=== PATIENT | female | born 2000 | race Caucasian/White ===

== ENCOUNTER 2019-03-07 09:52 | Inpatient (IN) ==
[2019-03-08] MEDS ORDERED: ONDANSETRON 4 MG TAB.RAPDIS PO PRN (06:20)
[2019-03-08] MEDS ORDERED: RINGER'S SOLUTION,LACTATED 1,000 ML IV ONE (06:20)
[2019-03-08] MEDS ORDERED: BUTORPHANOL TARTRATE 2 MG/ML VIAL IV PRN ×2 (06:20)
[2019-03-08] MEDS ORDERED: LIDOCAINE HCL 50 ML VIAL PERI PRN (06:20)
[2019-03-08] MEDS ORDERED: OXYTOCIN/DEXTROSE 5%-WATER 30 UNITS/500 ML BAG IV ONE ×2 (06:20→22:28)
[2019-03-08] MEDS: RINGER'S SOLUTION,LACTATED 1,000 ML IV PRN ×3 (06:48→21:00)
[2019-03-08 07:01] LABS: Cocaine Ur Negative (NEGATIVE); Urine Barbiturate Negative (NEGATIVE); Urine Benzodiazepines Negative (NEGATIVE); Urine Opiates Negative (NEGATIVE); Urine PCP Negative (NEGATIVE); Urine THC Negative (NEGATIVE)
[2019-03-08] MEDS ORDERED: NALOXONE HCL 1 MG/1 ML SYRG IV PRN (08:52)
[2019-03-08] MEDS ORDERED: ONDANSETRON HCL/PF 2 MG/ML VIAL IV PRN (08:52)
[2019-03-08] MEDS ORDERED: BUPIVACAINE HCL/0.9 % NACL/PF 250 ML EP PRN (08:52)
--- NOTE | 2019-03-08 08:58 | ANES ---
Anesthesia Pre Procedure Eval Vitals/Labs: Last Vital Signs Temp 36.6 C 03/08/19 06:35 Pulse 100 03/08/19 06:35 Resp 16 03/08/19 06:35 BP 125/74 03/08/19 06:35 Pulse Ox 98 03/08/19 06:35 HOME MEDICATIONS cholecalciferol (vitamin D3) 1,000 unit capsule 1,000 unit PO DAILY 10/06/18 [Last Taken 03/08/19] Vits96/Iron Fum/Folic [ S] 1 tab PO DAILY 03/08/19 [Last Taken 03/08/19] Allergies/Adverse Reactions: Allergies Allergy/AdvReac Type Severity Reaction Status Date / Time No Known Allergies Allergy Verified 03/08/19 06:30 - Planned Procedure Planned Procedure: ELECTIVE INDUCTION Medication List Reviewed:: Yes Allergies Verified: Yes Medical History (Last Reviewed 03/08/19 @ 08:57 by Yusuf Mercer CRNA) Back pain Bipolar 1 disorder Depression Schizophrenia Seizure disorder only 2 episodes per patient-never been on meds Surgical History (Last Reviewed 03/08/19 @ 08:57 by Yusuf Mercer CRNA) No pertinent past surgical history Family History (Last Reviewed 03/08/19 @ 08:40 by Jeannette Fischer RN) Father Myocardial infarction, Onset Age: 30 x3 Mother History of knee replacement Depression Grandfather Cancer Bladder Grandmother COPD (chronic obstructive pulmonary disease) Sister Apraxia Aunt Epilepsy Grandmother Epilepsy - Anesthesia Assessment and Plan ASA Class: PS, II Anesthesia Type Plan: Epidural
[2019-03-08] MEDS ORDERED: BUPIVACAINE HCL/PF 30 ML VIAL EP SCH (09:00)
--- NOTE | 2019-03-08 09:04 | HP ---
Chief Complaint - Chief Complaint Date of Service: 03/08/19 Time of Service: 08:57 Chief Complaint: Labor induction History of Present Illness: 18 year old at 39w 2d who presents to labor and delivery for an elective IOL. She denies vaginal bleeding or loss of fluid. She reports regular ctx on pitocin. Fetus is active. Medical History (Last Reviewed 03/08/19 @ 08:59 by Lisa Chen MD) Back pain Bipolar 1 disorder Depression Schizophrenia Seizure disorder only 2 episodes per patient-never been on meds Surgical History: Surgical History (Last Reviewed 03/08/19 @ 08:59 by Lisa Chen MD) No pertinent past surgical history Family History: Family History (Last Reviewed 03/08/19 @ 08:59 by Lisa Chen MD) Father Myocardial infarction, Onset Age: 30 x3 Mother History of knee replacement Depression Grandfather Cancer Bladder Grandmother COPD (chronic obstructive pulmonary disease) Sister Apraxia Aunt Epilepsy Grandmother Epilepsy Social History: (Last Reviewed 03/08/19 @ 08:59 by Lisa Chen MD) Social History: adopted: No Marital status: Single household members: significant other current occupational status: unemployed current occupational exposures/hazards: No Highest education level completed: high school graduate Service: No Tobacco: Smoking Status: Current every day smoker tobacco type: cigarettes Smoking cigarettes per day: 3 Years smoked: 4 Smoking pack-years: 0.60 Alcohol: alcohol intake: former details: stopped with +UPT Substance Use: substance use type: marijuana, methamphetamine, other details: meth last used 07/2017, marijuana last used approx 2 weeks ago Dietary Habits: caffeine: Yes caffeine comment: 3 per week Type: coffee Pets: pets and animals: cat(s), dog(s) Review Of Systems (GEN) - Review of Systems Generalized/Overall Review: Present: No Symptoms Reported Misc: All systems neg except as marked Immunizations: IMMUNIZATION HX Immunizations Up to Date Yes Allergies/Adverse Reactions: Allergies Allergy/AdvReac Type Severity Reaction Status Date / Time No Known Allergies Allergy Verified 03/08/19 06:30 Home Medications: HOME MEDICATIONS cholecalciferol (vitamin D3) 1,000 unit capsule 1,000 unit PO DAILY 10/06/18 [Last Taken 03/08/19] Vits96/Iron Fum/Folic [ S] 1 tab PO DAILY 03/08/19 [Last Taken 03/08/19] Exam - Exam Vital Signs: Vital Signs - Last Taken Temp 36.6 C 03/08/19 06:35 Pulse 100 03/08/19 06:35 Resp 16 03/08/19 06:35 BP 125/74 03/08/19 06:35 Pulse Ox 98 03/08/19 06:35 Constitutional: Present: Alert, Oriented x3, Cooperative, No distress ENT Exam: Present: hearing grossly normal Back Exam: Present: normal inspection, no CVA tenderness Breasts: Present: Exam deferred Respiratory: Present: lungs clear, normal breath sounds Cardiovascular/Chest: Present: regular rate, rhythm Abdomen: Present: soft, nontender, nondistended /Rectal: Present: Other - 3.5/70/-1 Extremity: Present: non-tender, no calf tenderness Skin Exam: Present: normal color, warm/dry, no cyanosis Appearance: Present: appropriate appearance Eye contact: Present: cooperative Thoughts: Present: normal thought pattern Diagnostic Studies: Laboratory Results Urine Opiates Screen Negative (NEGATIVE) 03/08/19 06:35 Barbiturate Screen Negative (NEGATIVE) 03/08/19 06:35 Ur Phencyclidine Scrn Negative (NEGATIVE) 03/08/19 06:35 Urine Amphetamine Negative (NEGATIVE) 03/08/19 06:35 U Benzodiazepines Scrn Negative (NEGATIVE) 03/08/19 06:35 Urine Cocaine Screen Negative (NEGATIVE) 03/08/19 06:35 Urine Marijuana (THC) Negative (NEGATIVE) 03/08/19 06:35 Blood Type O Positive 03/08/19 06:35 Antibody Screen Negative 03/08/19 06:35 Assessment/Plan - Narrative Narrative: 18 year old at 39w 2d 1. Elective IOL: Patient on pitocin and AROM done for augmentation 2. GBS negative: prophylaxis not indicated
--- NOTE | 2019-03-08 10:52 | ANES ---
Anesthesia Procedure Note Procedure Note: ANESTHESIA PROCEDURE NOTE Date of Procedure: 03/08/2018. Time of procedure: 1040. Performed by: Yusuf Mercer CRNA Diesel Engine Engineer: None. Preprocedure diagnosis: Active labor. Post procedure diagnosis: Same. Procedure: Insertion of labor epidural. Indications: The patient is a 18-year-old female in active labor requesting labor epidural for pain management. Findings: See below. Details of the procedure: The patient was placed in a sitting position. DuraPrep as well as Betadine swabs X3 was applied to the patient's back. Patient was then draped in a sterile fashion. Lidocaine 1% was infiltrated to the skin and subcutaneous tissues at the level of the L3-4 interspace. The epidural space was identified using a 18-gauge Tuohy needle with [id number] technique. Epidural catheter was inserted to a depth of 8 centimeters at skin. Negative test dose was elicited using 3 mL of 1.5% preservative-free lidocaine plus epinephrine 1 200,000. The epidural catheter was then taped and secured in place. A loading dose of 8 mL of 0.25% preservative-free bupivacaine was administered to the epidural catheter after negative aspiration for blood and CSF. EBL: Minimal. Fluids: N/A. Specimen: N/A. Post procedure condition: The patient tolerated the procedure well. No complications were noted. Thank you for this consultation. Yusuf Mercer CRNA
--- NOTE | 2019-03-08 10:52 | ANES ---
Post Anesthesia Assessment - Vital Signs Vitals: Last Vital Signs Temp 36.8 C 03/08/19 10:50 Pulse 107 H 03/08/19 10:50 Resp 20 03/08/19 10:50 BP 151/87 H 03/08/19 10:50 Pulse Ox 98 03/08/19 10:50 Airway Patency: Normal - Mental Status Level Of Consciousness: Awake - N/V Assessment Nausea/Vomiting Presence: None Dehydration:: No
--- NOTE | 2019-03-08 22:27 | OR ---
Operative Report - Dictated Report Narrative: Date of delivery: 03/08/2019 Time of delivery: 2212 Gender: male weight: 2971 grams APGARS: 9 Procedure: Description of the procedure: The patient is a 18 year old at 39w 2d who presented to labor and delivery for an elective induction of labor. She received pitocin and was augmented with AROM. She progressed to complete dilation. She delivered a viable male infant in direct OA presentation. The shoulders delivered without any difficulty followed by the rest of the . Cord clamping was delayed for 60 seconds. The cord was clamped and cut. The placenta was delivered by expression and appeared intact. There were no lacerations. Terminal meconium was noted. EBL: 200 mL Complications: none Specimen: placenta to pathology History for MU Definition: * The number of deliveries resulting in a live the patient experienced prior to current hospitalization * The previous delivery of live twins or any live multiple gestation is considered one live event. *If primagravida or nulliparous is documented select zero for the number of previous live births. Live Events: 0
[2019-03-08] MEDS ORDERED: GLYCERIN/WITCH HAZEL LEAF 40 APPL BOX TP PRN (22:28)
[2019-03-08] MEDS ORDERED: BENZOCAINE/MENTHOL 81 SPRAY CAN TP PRN (22:28)
[2019-03-08] MEDS ORDERED: diphenhydrAMINE HCL 25 MG CAPSULE PO PRN (22:28)
[2019-03-08] MEDS ORDERED: HYDROCORTISONE 30 APPL TUBE TP PRN (22:28)
[2019-03-08] MEDS ORDERED: HYDROcodone/ACETAMINOPHEN 1 EACH TABLET PO PRN (22:28)
[2019-03-08] MEDS ORDERED: IBUPROFEN 800 MG TABLET PO PRN (22:28)
[2019-03-08] MEDS ORDERED: BISACODYL 10 MG SUPP.RECT RC PRN (22:28)
[2019-03-08] MEDS ORDERED: SENNOSIDES 8.6 MG TABLET PO PRN (22:28)
[2019-03-09] MEDS: HYDROcodone/ACETAMINOPHEN 1 EACH TABLET PO PRN ×2 (02:02→16:20)
--- NOTE | 2019-03-09 08:59 | PN ---
Subjective - Date and Time Seen Date: 03/09/19 Time: 08:57 Subjective Narrative: Patient without complaints Objective Objective Narrative: See vital signs - Review of Systems Generalized/Overall Review: Reports: No Symptoms Reported Misc: All systems neg except as marked - Vitals Vitals: Last Vital Signs Temp 36.4 C 03/09/19 03:25 Pulse 100 03/09/19 03:25 Resp 18 03/09/19 03:25 BP 130/61 03/09/19 03:25 Pulse Ox 98 03/09/19 03:25 - Exam Constitutional: Present: Alert, Oriented x3, Cooperative, No distress ENT Exam: Present: hearing grossly normal Abdomen: Present: soft, nontender, nondistended - fundus is firm Extremity: Present: non-tender, no calf tenderness Skin Exam: Present: normal color, warm/dry, no cyanosis Appearance: Present: appropriate appearance Eye contact: Present: cooperative Thoughts: Present: normal thought pattern Cauti Physician Documentation - Urinary Catheter Management Urethral (Navarrete) Urethral Indwelling: No Date of Insertion: 03/08/19 Time of Insertion: 11:11 Date of Removal: 03/08/19 Time of Removal: 21:40 Assessment/Plan Plan Narrative: PPD 1 s/p Doing well Discharge tomorrow
[2019-03-09] MEDS: DOCUSATE SODIUM 100 MG CAPSULE PO SCH (13:35)
[2019-03-10] MEDS: DOCUSATE SODIUM 100 MG CAPSULE PO SCH (04:47)
[2019-03-10 09:34] VITALS: BP 116/63
--- NOTE | 2019-03-10 09:46 | PN ---
Subjective - Date and Time Seen Date: 03/10/19 Time: 09:45 Subjective Narrative: Patient without complaints Objective Objective Narrative: See vital signs - Review of Systems Generalized/Overall Review: Reports: No Symptoms Reported Misc: All systems neg except as marked - Vitals Vitals: Last Vital Signs Temp 36.6 C 03/10/19 09:28 Pulse 94 03/10/19 09:28 Resp 18 03/10/19 09:28 BP 116/63 03/10/19 09:28 Pulse Ox 98 03/10/19 09:28 - Exam Constitutional: Present: Alert, Oriented x3, Cooperative, No distress Extremity: Present: non-tender, no calf tenderness Skin Exam: Present: normal color, warm/dry, no cyanosis Appearance: Present: appropriate appearance Eye contact: Present: cooperative Thoughts: Present: normal thought pattern Cauti Physician Documentation - Urinary Catheter Management Urethral (Navarrete) Urethral Indwelling: No Date of Insertion: 03/08/19 Time of Insertion: 11:11 Date of Removal: 03/08/19 Time of Removal: 21:40 Assessment/Plan Plan Narrative: PPD 2 s/p Doing well Discharge home
== END 2019-03-10 15:30 | disposition home or self-care (01) | DRG 807 ==
LOC: OB 09:52 → MS 03-09 11:29
PROVIDERS: ADMIT Obstetrics & Gynecology; ATTEND Obstetrics & Gynecology
CPT/HCPCS: 59025; 80307; 86850; 88307

== ENCOUNTER 2020-04-18 00:08 | Inpatient (IN) ==
[2020-04-18] MEDS ORDERED: ONDANSETRON 4 MG TAB.RAPDIS PO PRN (00:09)
[2020-04-18] MEDS ORDERED: RINGER'S SOLUTION,LACTATED 1,000 ML IV ONE (00:09)
[2020-04-18] MEDS ORDERED: OXYTOCIN/0.9 % SODIUM CHLORIDE 30 UNITS/500 ML BAG IV ONE ×2 (00:09→09:55)
[2020-04-18 02:40] LABS: Cocaine Ur Negative (NEGATIVE); Urine Barbiturate Negative (NEGATIVE); Urine Benzodiazepines Negative (NEGATIVE); Urine Opiates Negative (NEGATIVE); Urine PCP Negative (NEGATIVE); Urine THC Negative (NEGATIVE)
[2020-04-18] MEDS ORDERED: ONDANSETRON HCL/PF 2 MG/ML VIAL IV PRN (04:11)
[2020-04-18] MEDS ORDERED: NALOXONE HCL 1 MG/1 ML SYRG IV PRN (04:11)
[2020-04-18] MEDS ORDERED: BUPIVACAINE HCL/0.9 % NACL/PF 250 ML EP PRN (04:11)
[2020-04-18] MEDS ORDERED: BUPIVACAINE HCL/PF 30 ML VIAL EP SCH (04:15)
--- NOTE | 2020-04-18 04:36 | ANES ---
Anesthesia Pre Procedure Eval HOME MEDICATIONS cholecalciferol (vitamin D3) 25 mcg (1,000 unit) capsule 1,000 unit PO DAILY 10/06/18 [Last Taken 03/08/19] Vits96/Iron Fum/Folic [ S] 1 tab PO DAILY 03/08/19 [Last Taken 03/08/19] magnesium 250 mg tablet 500 mg PO DAILY tab 11/13/19 [Last Taken Unknown] calcium carbonate 500 mg calcium (1,250 mg) chewable tablet 500 mg PO DAILY 04/02/20 [Last Taken Unknown] Allergies/Adverse Reactions: Allergies Allergy/AdvReac Type Severity Reaction Status Date / Time No Known Allergies Allergy Verified 04/18/20 00:10 - Planned Procedure Planned Procedure: elective induction Medication List Reviewed:: Yes Allergies Verified: Yes Medical History (Last Reviewed 04/18/20 @ 04:35 by Yusuf Mercer CRNA) Short interval between pregnancies affecting , antepartum (Acute) Back pain Bipolar 1 disorder Depression Schizophrenia Seizure disorder only 2 episodes per patient-never been on meds Surgical History (Last Reviewed 04/18/20 @ 04:35 by Yusuf Mercer CRNA) No pertinent past surgical history Family History (Last Reviewed 04/16/20 @ 10:41 by Jo Andrade RN) Father Myocardial infarction, Onset Age: 30 x3 Mother History of knee replacement Depression Grandfather Cancer Bladder Grandmother COPD (chronic obstructive pulmonary disease) Sister Apraxia Aunt Epilepsy Grandmother Epilepsy - Anesthesia Assessment and Plan ASA Class: PS, II Anesthesia Type Plan: Epidural
--- NOTE | 2020-04-18 04:53 | ANES ---
Anesthesia Procedure Note Procedure Note: ANESTHESIA PROCEDURE NOTE Date of Procedure: 04/18/2020. Time of procedure: 434. Performed by: Yusuf Mercer CRNA Manager Law: None. Preprocedure diagnosis: Active labor. Post procedure diagnosis: Same. Procedure: Insertion of labor epidural. Indications: The patient is a 19-year-old female in active labor requesting labor epidural for pain management. Findings: See below. Details of the procedure: The patient was placed in a sitting position. DuraPrep as well as Betadine swabs X3 was applied to the patient's back. Patient was then draped in a sterile fashion. Lidocaine 1% was infiltrated to the skin and subcutaneous tissues at the level of the L3-4 interspace. The epidural space was identified using a 18-gauge Tuohy needle with [id number] technique. Epidural catheter was inserted to a depth of 9 centimeters at skin. Negative test dose was elicited using 3 mL of 1.5% preservative-free lidocaine plus epinephrine 1 200,000. The epidural catheter was then taped and secured in place. A loading dose of 8 mL of 0.25% preservative-free bupivacaine was administered to the epidural catheter after negative aspiration for blood and CSF. EBL: Minimal. Fluids: N/A. Specimen: N/A. Post procedure condition: The patient tolerated the procedure well. No complications were noted. Thank you for this consultation. Yusuf Mercer CRNA
--- NOTE | 2020-04-18 04:54 | ANES ---
Post Anesthesia Assessment - Vital Signs Airway Patency: Normal - Mental Status Level Of Consciousness: Awake - N/V Assessment Nausea/Vomiting Presence: None Dehydration:: No
--- NOTE | 2020-04-18 08:58 | HP ---
Chief Complaint - Chief Complaint Date of Service: 04/18/20 Time of Service: 08:35 Chief Complaint: induction of labor History of Present Illness: 19 yo at 39w1d admitted for induction of labor. This complicated by anemia, bipolar d/o, depression, schizophrenia, short interval between pregnancies, back pain, smoker, and THC use. Rh positive Rubella nonimmune GBS negative Medical History (Last Reviewed 04/18/20 @ 08:40 by Cullen Dixon DO) Short interval between pregnancies affecting , antepartum (Acute) Back pain Bipolar 1 disorder Depression Schizophrenia Seizure disorder only 2 episodes per patient-never been on meds Surgical History: Surgical History (Last Reviewed 04/18/20 @ 08:40 by Cullen Dixon DO) No pertinent past surgical history Family History: Family History (Last Reviewed 04/18/20 @ 08:40 by Cullen Dixon DO) Father Myocardial infarction, Onset Age: 30 x3 Mother History of knee replacement Depression Grandfather Cancer Bladder Grandmother COPD (chronic obstructive pulmonary disease) Sister Apraxia Aunt Epilepsy Grandmother Epilepsy Social History: (Last Reviewed 04/18/20 @ 08:40 by Cullen Dixon DO) Social History: adopted: No Marital status: household members: spouse current occupational status: employed current occupation: [employer] current occupational exposures/hazards: No Highest level of school completed/degree received: high school graduate Service: No Tobacco: Smoking Status: Current every day smoker tobacco type: cigarettes Smoking cigarettes per day: 10.0 Smoking packs per day: 0.5 Alcohol: alcohol intake: former details: stopped with +UPT Substance Use: substance use type: marijuana details: meth last used 07/2017, marijuana last used approx 3-4 weeks ago Dietary Habits: caffeine: Yes caffeine comment: 3 per day Type: coffee daily servings of milk/calcium: 2-4 Pets: pets and animals: cat(s) Exercise: frequency: does not exercise Review Of Systems (GEN) - Review of Systems Generalized/Overall Review: Present: No Symptoms Reported EENTM: Present: No Symptoms Reported Respiratory: Present: No Symptoms Reported Cardiac: Present: No Symptoms Reported Abdominal: Present: No Symptoms Reported Genitourinary: Present: No Symptoms Reported Musculoskeletal: Present: No Symptoms Reported Neurological: Present: No Symptoms Reported Skin: Present: No Symptoms Reported Endocrine: Present: No Symptoms Reported Immunizations: IMMUNIZATION HX Immunizations Up to Date Yes Allergies/Adverse Reactions: Allergies Allergy/AdvReac Type Severity Reaction Status Date / Time No Known Allergies Allergy Verified 04/18/20 00:10 Home Medications: HOME MEDICATIONS cholecalciferol (vitamin D3) 25 mcg (1,000 unit) capsule 1,000 unit PO DAILY 10/06/18 [Last Taken 03/08/19] Vits96/Iron Fum/Folic [ S] 1 tab PO DAILY 03/08/19 [Last Taken 03/08/19] magnesium 250 mg tablet 500 mg PO DAILY tab 11/13/19 [Last Taken Unknown] calcium carbonate 500 mg calcium (1,250 mg) chewable tablet 500 mg PO DAILY 04/02/20 [Last Taken Unknown] Exam - Exam Vital Signs: T 36.7C, P 90, BP 137/70, R 16, O2 98% Constitutional: Present: Alert, Oriented x3, Cooperative ENT Exam: Present: hearing grossly normal Neck: Present: non-tender, supple. Absent: thyromegaly Breasts: Present: Exam deferred Respiratory: Present: lungs clear, no respiratory distress Cardiovascular/Chest: Present: regular rate, rhythm, no edema Abdomen: Present: soft, nontender, no rebound tenderness, other - Gravid /Rectal: Present: Other - Cervix - 3/50/-3 Extremity: Present: no pedal edema, no calf tenderness Skin Exam: Present: normal color, warm/dry, no cyanosis Lymphatic: Present: no adenopathy Neurologic: Present: alert, normal mood/affect, oriented x 3 Appearance: Present: appropriate appearance, appropriate insight Eye contact: Present: cooperative, good eye contact Thoughts: Present: normal thought pattern, normal mood /affect Diagnostic Studies: Laboratory Results Urine Opiates Screen Negative (NEGATIVE) 04/18/20 02:00 Barbiturate Screen Negative (NEGATIVE) 04/18/20 02:00 Ur Phencyclidine Scrn Negative (NEGATIVE) 04/18/20 02:00 Urine Amphetamine Negative (NEGATIVE) 04/18/20 02:00 U Benzodiazepines Scrn Negative (NEGATIVE) 04/18/20 02:00 Urine Cocaine Screen Negative (NEGATIVE) 04/18/20 02:00 Urine Marijuana (THC) Negative (NEGATIVE) 04/18/20 02:00 Assessment/Plan - Assessment/Plan (1) Elective induction of labor planned Assessment: Admit to L&D for pitocin induction of labor. Epidural PRN. UDS and cord blood segment for drug screen. Problem: Acute (2) Depression Problem: Chronic Qualifiers: Depression Type: unspecified Qualified Code(s): F32.9 - Major depressive disorder, single episode, unspecified (3) Bipolar disorder Problem: Chronic Qualifiers: Active/Remission status: in remission of unspecified degree Qualified Code(s): F31.70 - Bipolar disorder, currently in remission, most recent episode unspecified (4) Schizophrenia Problem: Chronic Qualifiers: Schizophrenia type: unspecified Qualified Code(s): F20.9 - Schizophrenia, unspecified (5) Short interval between pregnancies affecting , antepartum Problem: Acute (6) Tobacco abuse Problem: Chronic (7) Not immune to rubella Problem: Chronic (8) Tetrahydrocannabinol (THC) use disorder, mild, abuse Problem: Chronic
--- NOTE | 2020-04-18 09:00 | PN ---
Progess Note - Interim Date: 04/18/20 Time: 08:58 Narrative: 04/18/20 08:58 Patient comfortable with epidural Vital signs stable. FHT: 130 baseline, reassuring contractions q 1-3 min Cervix: 8/90/-1, spontaneous SROM at 0350 Impression: Intrauterine at 39-1/7 weeks elective induction of labor Plan: Anticipate normal spontaneous vaginal delivery soon
[2020-04-18] MEDS ORDERED: SENNOSIDES 8.6 MG TABLET PO PRN (09:55)
[2020-04-18] MEDS ORDERED: HYDROCORTISONE 30 APPL TUBE TP PRN (09:55)
[2020-04-18] MEDS ORDERED: IBUPROFEN 800 MG TABLET PO PRN ×2 (09:55)
[2020-04-18] MEDS ORDERED: BISACODYL 10 MG SUPP.RECT RC PRN (09:55)
[2020-04-18] MEDS ORDERED: GLYCERIN/WITCH HAZEL LEAF 40 APPL BOX TP PRN (09:55)
[2020-04-18] MEDS ORDERED: BENZOCAINE/MENTHOL 81 SPRAY CAN TP PRN (09:55)
--- NOTE | 2020-04-18 10:02 | OR ---
Operative Report - Dictated Report Narrative: Spontaneous vaginal delivery of vigorously crying viable male at 0938 on 04/18/2020 with Apgars 9 and 9, weighing 3190 grams and GEM position with foot cord x1. Cord clamping delayed approximately 1.5 minutes Placenta delivered complete, intact, with three vessel cord Estimated blood loss: Less than 50 ml Anesthesia: Epidural Lacerations: None History for MU History for Definition: * The number of deliveries resulting in a live the patient experienced prior to current hospitalization * The previous delivery of live twins or any live multiple gestation is considered one live event. *If primagravida or nulliparous is documented select zero for the number of previous live births. Live Events: Live Events: 1
[2020-04-18] MEDS ORDERED: MISOPROSTOL 200 MCG TABLET PO ONE (12:56)
[2020-04-18] MEDS: DOCUSATE SODIUM 100 MG CAPSULE PO SCH (20:13)
--- NOTE | 2020-04-19 08:25 | PN ---
Subjective - Date and Time Seen Date: 04/19/20 Time: 08:23 Objective - Vitals Vitals: Last Vital Signs Temp 36.7 C 04/19/20 07:27 Pulse 82 04/19/20 07:27 Resp 16 04/19/20 07:27 BP 120/70 04/19/20 07:27 Pulse Ox 99 04/19/20 07:27 Patient denies complaints. Patient had little heavy bleeding few hours after delivery which responded well to Cytotec 200 mcg p.o. x1. Breast-feeding well. Lochia wnl abdomen - soft, nontender Uterus -firm, at umbilicus - 1 No calf tenderness Impression: day #1 - s/p spontaneous vaginal delivery. Plan: Continue routine care Cauti Physician Documentation - Urinary Catheter Management Urethral (Navarrete) Date of Insertion: 04/18/20 Time of Insertion: 05:30 Date of Removal: 04/18/20 Time of Removal: 09:15 Assessment/Plan - Problems/Diagnosis (1) Elective induction of labor planned Problem: Resolved (2) Depression Problem: Chronic Qualifiers: Depression Type: unspecified Qualified Code(s): F32.9 - Major depressive disorder, single episode, unspecified (3) Bipolar disorder Problem: Chronic Qualifiers: Active/Remission status: in remission of unspecified degree Qualified Code(s): F31.70 - Bipolar disorder, currently in remission, most recent episode unspecified (4) Schizophrenia Problem: Chronic Qualifiers: Schizophrenia type: unspecified Qualified Code(s): F20.9 - Schizophrenia, unspecified (5) Short interval between pregnancies affecting , antepartum Problem: Resolved (6) Tobacco abuse Problem: Chronic (7) Not immune to rubella Problem: Chronic (8) Tetrahydrocannabinol (THC) use disorder, mild, abuse Problem: Chronic
[2020-04-19] MEDS: CALCIUM CARBONATE 500 MG TAB.CHEW PO SCH (10:27)
[2020-04-19] MEDS: MAGNESIUM OXIDE 400 MG TABLET PO SCH (10:27)
[2020-04-19] MEDS: DOCUSATE SODIUM 100 MG CAPSULE PO SCH ×2 (10:27→21:40)
[2020-04-19] MEDS: PRENATAL VITS96/IRON FUM/FOLIC 1 TAB TABLET PO SCH (10:27)
[2020-04-19] MEDS: CHOLECALCIFEROL 1,000 UNIT CAPSULE PO SCH (10:27)
[2020-04-20] MEDS: oxyCODONE HCL/ACETAMINOPHEN 1 TAB TABLET PO PRN ×2 (06:37→11:35)
[2020-04-20 06:40] VITALS: BP 119/56
--- NOTE | 2020-04-20 10:55 | PN ---
Subjective - Date and Time Seen Date: 04/20/20 Time: 10:54 Objective - Vitals Vitals: Last Vital Signs Temp 37.1 C 04/20/20 06:25 Pulse 72 04/20/20 06:25 Resp 18 04/20/20 06:25 BP 119/56 04/20/20 06:25 Pulse Ox 96 04/20/20 06:25 Patient denies complaints. Lochia wnl abdomen - soft, nontender Uterus -firm, at umbilicus - 2 No calf tenderness Impression: day #2 - s/p spontaneous vaginal delivery. Plan: Routine discharge instructions Cauti Physician Documentation - Urinary Catheter Management Urethral (Navarrete) Date of Insertion: 04/18/20 Time of Insertion: 05:30 Date of Removal: 04/18/20 Time of Removal: 09:15 Assessment/Plan - Problems/Diagnosis (1) Elective induction of labor planned Problem: Resolved (2) Depression Problem: Chronic Qualifiers: Depression Type: unspecified Qualified Code(s): F32.9 - Major depressive disorder, single episode, unspecified (3) Bipolar disorder Problem: Chronic Qualifiers: Active/Remission status: in remission of unspecified degree Qualified Code(s): F31.70 - Bipolar disorder, currently in remission, most recent episode unspecified (4) Schizophrenia Problem: Chronic Qualifiers: Schizophrenia type: unspecified Qualified Code(s): F20.9 - Schizophrenia, unspecified (5) Short interval between pregnancies affecting , antepartum Problem: Resolved (6) Tobacco abuse Problem: Chronic (7) Not immune to rubella Problem: Chronic (8) Tetrahydrocannabinol (THC) use disorder, mild, abuse Problem: Chronic
--- NOTE | 2020-04-20 10:57 | DS ---
OB Discharge Summary (1) Elective induction of labor planned Status: Resolved (2) Depression Status: Chronic Qualifiers: Depression Type: unspecified Qualified Code(s): F32.9 - Major depressive disorder, single episode, unspecified (3) Bipolar disorder Status: Chronic Qualifiers: Active/Remission status: in remission of unspecified degree Qualified Code(s): F31.70 - Bipolar disorder, currently in remission, most recent episode unspecified (4) Schizophrenia Status: Chronic Qualifiers: Schizophrenia type: unspecified Qualified Code(s): F20.9 - Schizophrenia, unspecified (5) Short interval between pregnancies affecting , antepartum Status: Resolved (6) Tobacco abuse Status: Chronic (7) Not immune to rubella Status: Chronic (8) Tetrahydrocannabinol (THC) use disorder, mild, abuse Status: Chronic Delivery Date: 04/18/20 Delivery Time: 09:38 :: 4 Para:: 2 Gestational weeks:: 39 Gestational days:: 1 Intrapartum Procedures: Spontaneous Vaginal Delivery, Delivered /OP Complications: No Complications Discharge Diagnosis: Term -Delivered, Rubella Nonimmune - Discharge Information Date of Discharge: 04/20/20 Hospital Course: 19-year-old 4 now para 2 admitted at 39 1/7 weeks for induction of labor which went uneventfully. Her course was uncomplicated. She was discharged to home with routine discharge instructions. She will receive her rubella vaccine at her visit. Discharge Location: Home Disposition: Home self-care Condition: Good Activity on Discharge:: Activity as tolerated Discharge Diet: General/regular food Additional Patient Instructions (free text): Nika, ernst follow up appointment is May 16 at 2:[address] Dixon. Adalgisa appointment is Wednesday at 10:15 AM at [facility] in [place] with Tomasa Yoo. His Blood Type is O+. His Weight Today is 6 pounds 8oz. Nurse Carmen every 2 to 3 hours and on demand. Rest when he rests. Always place him on his back in his own crib or bassinet for sleep. No pillows, blankets, stuffed animals, or bumper pads in his sleep space. No co-sleeping. He passed his hearing and CHD screens. Congratulations on your new addition. Please don't hesitate to call with any questions or concerns. Place- [phone], [facility] - [phone], [facility] - [phone]. [facility] [phone]. Complete Home Medications List: Complete Home Medication List: cholecalciferol (vitamin D3) 25 mcg (1,000 unit) capsule 1,000 unit PO DAILY 10/06/18 Vits96/Iron Fum/Folic [ S] 1 tab PO DAILY 03/08/19 magnesium 250 mg tablet 500 mg PO DAILY tab 11/13/19 calcium carbonate 500 mg calcium (1,250 mg) chewable tablet 500 mg PO DAILY 04/02/20 - Plan Discharge to:: Home Follow up in office in:: 3-4 weeks - Information Weight (Grams): 3,190 Sex: Male Score 1 min: 9 Score 5 min: 9 Complications: Multiple Variable Decels - late component, Other Other Complications: Leg Cord
[2020-04-20] MEDS: DOCUSATE SODIUM 100 MG CAPSULE PO SCH (12:47)
[2020-04-20] MEDS: MAGNESIUM OXIDE 400 MG TABLET PO SCH (12:47)
[2020-04-20] MEDS: CALCIUM CARBONATE 500 MG TAB.CHEW PO SCH (12:48)
[2020-04-20] MEDS: PRENATAL VITS96/IRON FUM/FOLIC 1 TAB TABLET PO SCH (12:48)
[2020-04-20] MEDS: CHOLECALCIFEROL 1,000 UNIT CAPSULE PO SCH (12:48)
== END 2020-04-20 12:40 | disposition home or self-care (01) | DRG 807 ==
LOC: OB 00:08
PROVIDERS: ADMIT Obstetrics & Gynecology; ATTEND Obstetrics & Gynecology